=== PATIENT | male | born 1980 | race Caucasian/White ===

== ENCOUNTER 2018-01-26 23:57 | Emergency (ER) | payer OTHER ==
[~2018-01-26] VITALS: Ht 177.8 cm; Wt 81.7 kg
[~2018-01-26 23:57] MED LIST: CYMBALTA20 MG PO; DOXYCYCLINE 10100 MG PO; LAMICTAL150 MG PO; PREDNISONE 20 M20 M1 PO; PROMETHAZINE-D120 ML PO; SEROQUEL 25 MG25 M1 PO; VENTOLIN HFA 1818 GM INH; VENTOLIN HFA INH8 GM INH
[2018-01-27 00:19] LABS: ABSOLUTE BASOPHILS 0.1 thou/uL (0.0-0.2); ABSOLUTE EOSINOPHILS 0.2 thou/uL (0.0-0.7); ABSOLUTE LYMPHOCYTES 2.2 thou/uL (0.8-5.3); ABSOLUTE MONOCYTES 0.7 thou/uL (0.0-1.2); ABSOLUTE NEUTROPHILS 5.7 thou/uL (1.6-8.1); BASOPHILS 1.1 %; EOSINOPHILS 1.8 %; HEMATOCRIT 43.4 % (42.0-52.0); LYMPHOCYTES 25.4 %; MCH 30.2 pg (26.0-34.0); MCHC 34.6 g/dL (28.0-37.0); MCV 87.2 fL (80.0-100.0); MONOCYTES 7.4 %; MPV 7.8 fl. (7.2-11.1); NUCLEATED RBCS 0 /100WBC; PLATELET COUNT* 309 thou/uL (150-400); POLYS 64.3 %; RBC 4.98 mil/uL (4.50-6.00); RDW-CV 13.5 % (10.5-14.5); WBC 8.8 thou/uL (4.0-11.0)
[2018-01-27 00:27] LABS: CALCIUM 10.1 mg/dL (8.5-10.1); CREATININE 1.1 mg/dL (0.6-1.3); POTASSIUM 3.1 mmol/L (3.5-5.1)
[2018-01-27 00:31] LABS: ALBUMIN 3.8 g/dL (3.4-5.0); TOTAL BILIRUBIN 0.3 mg/dL (<0.1-1.0); TOTAL PROTEIN 6.9 g/dL (6.4-8.2)
[2018-01-27 02:15] LABS: URINE BILIRUBIN NEGATIVE (Negative); URINE BLOOD 2+ (Negative); URINE CLARITY CLEAR; URINE COLOR YELLOW; URINE GLUCOSE-RANDOM NEGATIVE (Negative); URINE KETONES 1+ (Negative); URINE LEUKOCYTES-REFLEX TRACE (Negative); URINE NITRITE-REFLEX NEGATIVE (Negative); URINE PROTEIN 1+ (Negative); URINE UROBILINOGEN 0.2 E.U./dl (0.2-1.0)
[2018-01-27 02:26] LABS: AMORPHOUS PHOSPHATES Many /LPF (None Seen); CASTS None Seen /LPF (None Seen); MUCUS 4-6 Moderate strn/LPF (None Seen); SQUAMOUS 0-3 Few /LPF (0-3); URINE WBC-REFLEX 0-5 Rare /HPF (0-5)
[2018-01-27] MEDS ORDERED: NORCO 5-325 TA1 EACH PO (02:53)
[2018-01-27] MEDS ORDERED: IBUPROFEN 800800 M1 PO (02:53)
[2018-01-27] MEDS ORDERED: FLOMAX0.4 MG PO (02:53)
[2018-01-27] MEDS ORDERED: ZOFRAN ODT4 M1 PO (02:53)
[2018-01-27] MEDS ORDERED: BACTRIM DS TAB1 EACH PO (02:53)
[2018-01-27 03:15] VITALS: BP 129/82
== END 2018-01-27 03:40 | disposition home or self-care (01) ==
LOC: M.ERS 23:57
PROVIDERS: Emergency Medicine Emergency Medical Services
DX: N20.0 Calculus of kidney (principal); F32.9 Major depressive disorder, single episode, unspecified; F17.210 Nicotine dependence, cigarettes, uncomplicated

== ENCOUNTER → 2019-04-24 | Outpatient (CLI) | payer OTHER ==
[~2019-04-24] MED LIST changes: +BACTRIM DS TAB1 EACH PO; +FLOMAX0.4 MG PO; +IBUPROFEN 800800 M1 PO; +NORCO 5-325 TA1 EACH PO; +ZOFRAN ODT4 M1 PO
== END ==
LOC: M.ULTRA 12:56
DX: R22.1 Localized swelling, mass and lump, neck (principal); M54.2 Cervicalgia

== ENCOUNTER → 2021-02-03 | Outpatient (CLI) | payer OTHER | LOC: M.ULTRA 13:58 | PROVIDERS: ATTEND Nurse Practitioner Family | DX: R22.1 Localized swelling, mass and lump, neck (principal); F10.11 Alcohol abuse, in remission; Z72.0 Tobacco use ==

== ENCOUNTER 2021-06-21 12:11 | Emergency (ER) | payer OTHER ==
[~2021-06-21] VITALS: Ht 175.3 cm; Wt 90.7 kg
[2021-06-21] MEDS ORDERED: CYMBALTA60 MG PO (12:16)
[2021-06-21] MEDS ORDERED: PRAZOSIN HCL1 MG PO (12:16)
[2021-06-21] MEDS ORDERED: LAMICTAL200 MG PO (12:16)
[2021-06-21 12:57] LABS: ABSOLUTE BASOPHILS 0.1 thou/uL (0.0-0.2); ABSOLUTE EOSINOPHILS 0.2 thou/uL (0.0-0.7); ABSOLUTE LYMPHOCYTES 1.7 thou/uL (0.8-5.3); ABSOLUTE MONOCYTES 0.5 thou/uL (0.0-1.2); ABSOLUTE NEUTROPHILS 7.4 thou/uL (1.6-8.1); BASOPHILS 0.8 %; EOSINOPHILS 1.8 %; HEMATOCRIT 47.5 % (42.0-52.0); HEMOGLOBIN 16.3 gm/dL (14.0-18.0); LYMPHOCYTES 16.9 %; MCHC 34.3 g/dL (28.0-37.0); MCV 87.5 fL (80.0-100.0); MONOCYTES 5.1 %; MPV 7.7 fl. (7.2-11.1); NUCLEATED RBCS 0 /100WBC; PLATELET COUNT* 313 thou/uL (150-400); POLYS 75.4 %; RBC 5.43 mil/uL (4.50-6.00); RDW-CV 14.2 % (10.5-14.5); WBC 9.8 thou/uL (4.0-11.0)
[2021-06-21 13:07] LABS: CALCIUM 9.6 mg/dL (8.5-10.1); CREATININE 1.4 mg/dL (0.6-1.3); POTASSIUM 3.9 mmol/L (3.5-5.1)
[2021-06-21 13:11] LABS: ALBUMIN 3.7 g/dL (3.4-5.0); TOTAL BILIRUBIN 0.3 mg/dL (<0.1-1.0)
[2021-06-21 13:55] LABS: INFLUENZA A ANTIGEN Negative (Negative); INFLUENZA B ANTIGEN Negative (Negative)
[2021-06-21] MEDS ORDERED: CEPHALEXIN500 MG PO (14:26)
[2021-06-21 14:37] VITALS: BP 106/64
--- NOTE | 2021-06-22 15:27 | EKG ---
[place] [address] ELECTROCARDIOGRAM REPORT Name: REBECCA DAY Room: [facility]#: [id number] Admission: 06/21/21 Attend Phys: Discharge: 06/21/21 Date of : 80 Date of Service: 06/21/21 1256 Report #: [id number] THIS REPORT FOR: //name// [facility] ED Test Date: 2021-06-21 Test Time: 12:56:29 Pat Name: REBECCA DAY Department: Room: Gender: Production Artist: : 1980 Requested By: Fabien Choe Order Number: [id number] : Elmo Bui Measurements Intervals [place] Rate: 95 P: 52 MD: 157 QRS: 6 QRSD: 152 T: 42 QT: 345 QTc: 434 Interpretive Statements Sinus rhythm Nonspecific intraventricular conduction delay No previous ECG available for comparison Electronically Signed On 06-22-2021 15:27:32 [employer] by Elmo Bui [email or web address] <ELECTRONICALLY SIGNED> By: Elmo Bui MD, [facility] 06/22/21 1527 1256 1256 Elmo Bui MD, FACC /EPI
== END 2021-06-21 14:38 | disposition home or self-care (01) ==
LOC: M.ERS 12:11
PROVIDERS: Physician Assistant
DX: J02.9 Acute pharyngitis, unspecified (principal); Z20.822 Contact with and (suspected) exposure to COVID-19; I95.9 Hypotension, unspecified; F32.9 Major depressive disorder, single episode, unspecified; J45.909 Unspecified asthma, uncomplicated; F17.210 Nicotine dependence, cigarettes, uncomplicated; Z79.899 Other long term (current) drug therapy